=== PATIENT | female | born 1940 | race Caucasian/White ===

== ENCOUNTER 2020-10-05 15:07 | Outpatient (REF) | payer MEDICARE, MEDICAID, SELFPAY | END 2020-10-05 15:08 | disposition home or self-care (01) | LOC: HO.HMGCLDS 15:07 | PROVIDERS: Visit Provider Internal Medicine | DX: Z13.89 Encounter for screening for other disorder (principal) ==

== ENCOUNTER 2020-10-06 12:36 | Outpatient (REF) | payer MEDICARE, MEDICAID, SELFPAY ==
[2020-10-06 14:24] LABS: Hematocrit 41.7 % (37-47); Hemoglobin 13.5 g/dl (12.0-16.0); Mean Corpuscular HGB Conc 32.4 g/dl (31.0-35.0); Mean Corpuscular Hemoglobin 28.7 pg (27.0-33.0); Mean Corpuscular Volume 88.5 fL (80-98); Mean Platelet Volume 9.5 fL (9.4-12.3); Platelet Count 390 X10*3/uL (160-400); Red Blood Count 4.71 X10*6/uL (4.20-5.50); Red Cell Distribution Width 13.9 % (11.0-16.0); White Blood Count 6.4 X10*3/uL (4.8-10.8)
[2020-10-06 15:02] LABS: Alanine Aminotransferase 11 U/L (0-31); Albumin Level 4.2 g/dL (3.5-5.0); Alkaline Phosphatase 88 U/L (39-117); Anion Gap 14 (12-20); Aspartate Amino Transferase 13 U/L (5-31); Bilirubin Direct 0.2 mg/dL (0.0-0.5); Bilirubin Total 0.5 mg/dL (0.0-1.0); Blood Urea Nitrogen 11 mg/dL (9-16); Calcium 9.8 mg/dL (8.4-10.2); Carbon Dioxide 25 mmol/L (22-29); Chloride 106 mmol/L (96-108); Cholesterol 226 mg/dL; Estimated Glomerular Filt Rate > 60; Glucose Random 110 mg/dL (60-115); HDL Cholesterol 70 mg/dL; LDL Cholesterol Calculated 135 mg/dl; Potassium 4.7 mmol/L (3.3-5.1); Sodium 140 mmol/L (135-145); Total Protein 6.9 g/dL (6.5-8.0); Triglycerides 107 mg/dL
[2020-10-06 15:25] LABS: Thyroid Stimulating Hormone 1.09 uIU/mL (0.32-4.0)
[2020-10-06 16:37] LABS: Folate 14.7 ng/mL (> or = 4.0); Vitamin B12 < 146 pg/mL (200-900)
[2020-10-09 13:12] LABS: Vitamin D 25-OH, D2 <4 ng/mL; Vitamin D 25-OH, D3 13 ng/mL; Vitamin D 25-OH, Total 13 ng/mL (30-100)
== END 2020-10-06 12:37 | disposition home or self-care (01) ==
LOC: HO.HMGCLDS 12:36
PROVIDERS: Visit Provider Internal Medicine
DX: I73.9 Peripheral vascular disease, unspecified (principal)
CPT/HCPCS: 36415; 80048; 80061; 80076; 82306; 82607; 82746; 84443; 85027

== ENCOUNTER 2020-10-17 14:18 | Outpatient (REF) | payer MEDICARE, MEDICAID, SELFPAY ==
--- NOTE | ~2020-10-17 | US_ITS ---
EXAMINATION: BILATERAL LOWER EXTREMITY DUPLEX ARTERIAL EXAMINATION CLINICAL INFORMATION: Peripheral vascular disease. COMPARISON: None. TECHNIQUE: Real-time ultrasound and Doppler techniques (integrating B-mode 2D vascular images, Doppler spectral analysis and color flow Doppler imaging) were utilized to interrogate the lower extremity arteries bilaterally. FINDINGS: Arterial calcified plaque is seen diffusely. Right lower extremity: Common femoral artery has a monophasic waveform with peak systolic velocity of 156 cm/s. Profunda femoral artery has a triphasic waveform with peak systolic velocity of 155 cm/s. Proximal superficial femoral artery has a monophasic waveform with peak systolic velocity of 67 cm/s. Mid superficial femoral artery has a monophasic waveform with peak systolic velocity of 134 cm/s. Distal superficial femoral artery has a monophasic waveform with peak systolic velocity of 52 cm/s. Popliteal artery has a monophasic waveform with blunting of the waveform and spectral widening with peak systolic velocity of 60 cm/s. Posterior tibial artery has a monophasic waveform with peak systolic velocity of 26 cm/s. Left lower extremity the left common femoral artery has a biphasic waveform with peak systolic velocity of 126 cm/s. The profunda femoral artery has a biphasic waveform with peak systolic velocity of 93 cm/s. The superficial femoral artery has a biphasic waveform with peak systolic velocity of 121 cm/s. The mid superficial femoral artery has a monophasic waveform with peak systolic velocity 51 cm/s. The distal superficial femoral artery has a monophasic waveform with peak systolic velocity of 29 cm/s. The popliteal artery has a monophasic waveform with peak systolic velocity of 110 cm/s. The posterior tibial artery has a monophasic waveform with peak systolic velocity of 30 cm/s. US/US arterial duplex LE BI IMPRESSION: Diffuse calcified plaque within the lower extremity arterial system bilaterally with hemodynamically significant disease with predominantly monophasic waveforms to the popliteal arteries.
== END 2020-10-17 14:19 | disposition home or self-care (01) ==
LOC: HO.US 14:18
PROVIDERS: Visit Provider Internal Medicine
DX: I73.9 Peripheral vascular disease, unspecified (principal)
CPT/HCPCS: 93925

== ENCOUNTER → 2020-12-05 10:28 | Outpatient (BNVA) | payer MEDICARE, MEDICAID, SELFPAY | PROVIDERS: PCP Internal Medicine; Visit Provider Surgery Vascular Surgery | DX: I73.9 Peripheral vascular disease, unspecified (principal); E78.00 Pure hypercholesterolemia, unspecified; Z87.891 Personal history of nicotine dependence | CPT/HCPCS: 99202 ==